=== PATIENT | male | born 1960 | race Caucasian/White ===

== ENCOUNTER 2018-06-09 19:31 | Emergency (ER) | payer OTHER ==
--- NOTE | 2018-06-09 19:45 | EDPHY ---
H & P Stated Complaint: ETOH, Fall, Head Lac Time Seen by Provider: 06/09/18 19:41 HPI/ROS: CHIEF COMPLAINT: Fall, alcohol intoxication HISTORY OF PRESENT ILLNESS: 58-year-old male presents after a fall with a head injury. He has been drinking alcohol throughout the day. He was standing [place] town and had a witnessed fall. He struck his head on the ground. He was able to get up quickly after the injury. Did not lose consciousness and denies headache or neck pain. No other injuries. REVIEW OF SYSTEMS: complete 10 point ROS reviewed and is negative except for the noted elements in the HPI - Personal History Current Tetanus Diphtheria and Acellular Pertussis (TDAP): Yes - Medical/Surgical History Hx Asthma: No Hx Chronic Respiratory Disease: No Hx Diabetes: No Hx Cardiac Disease: No Hx Renal Disease: No Hx Cirrhosis: No Hx Alcoholism: No Hx HIV/AIDS: No Hx Splenectomy or Spleen Trauma: No Other PMH: etoh - Social History Smoking Status: Current every day smoker Alcohol Use: Heavy Drug Use: None - Physical Exam Exam: General Appearance: Alert, cooperative, speech is slurred Head: Right scalp hematoma Eyes: No conjunctival erythema, PERRLA, EOMI, no hyphema ENT, Mouth: No hemotympanum, no oral trauma, no bony tenderness Neck: Nontender, full range of motion without pain Respiratory: No chest wall tenderness, lungs clear bilaterally Cardiovascular: Regular rate and rhythm Abdomen: Abdomen is soft and nontender Skin: No lacerations Back: No midline T/L/S tenderness Extremities: Pelvis is stable and nontender; no extremity tenderness or deformity, range of motion without pain Neurological: A&Ox3, normal motor function, normal sensory exam, cranial nerves intact Psychiatric: Mood and affect normal Constitutional: Initial Vital Signs Temperature (C) 36.4 C 06/09/18 19:37 Heart Rate 93 06/09/18 19:37 Respiratory Rate 18 06/09/18 19:37 Blood Pressure 144/85 H 06/09/18 19:37 O2 Sat (%) 96 06/09/18 19:37 O2 Delivery Mode Room Air Allergies/Adverse Reactions: No Known Allergies Allergy (Unverified 06/27/10 15:35) Home Medications: Medication Instructions Recorded NO HOME MEDICATIONS 06/27/10 Medical Decision Making ED Course/Re-evaluation: This pt presents with alcohol intoxication. He has a small scalp abrasion, physical exam is otherwise unremarkable. Will observe until clinically sober. 8:35 p.m.-reassessed patient, remains pleasant and cooperative. Blood alcohol level 323. Will observe. Signed over to Dr. Roque at shift change. Differential Diagnosis: includes though not limited to ICH, fracture, ocular injury, suturable laceration - Data Points Laboratory Results: Laboratory Results 06/09/18 19:35 06/09/18 19:35 Departure - Departure Disposition: Home, Routine, Self-Care Clinical Impression: Alcoholic intoxication, Head injury Condition: Fair Instructions: Head Injury (ED), Alcohol Intoxication (ED) Referrals: Zenon Young MD [[facility] – [place] Primary Care Provider] - As per Instructions
[2018-06-09 19:47] LABS: PLATELET COUNT 254 10^3/uL (150-400)
[2018-06-09 22:27] VITALS: BP 132/103
== END 2018-06-09 22:26 | disposition home or self-care (01) ==
LOC: EDUNIT#
DX: S09.90XA Unspecified injury of head, initial encounter (principal); F10.929 Alcohol use, unspecified with intoxication, unspecified; W01.198A Fall on same level from slipping, tripping and stumbling with subsequent striking against other object, initial encounter; Y92.9 Unspecified place or not applicable; Y93.9 Activity, unspecified; Y99.9 Unspecified external cause status
CPT/HCPCS: G0480